=== PATIENT | male | born 1945 | race Caucasian/White ===

== ENCOUNTER 2017-04-21 10:40 | Emergency (ER) | payer MEDICARE, OTHER ==
[2017-04-21 11:05] VITALS: BP 105/66
--- NOTE | 2017-04-21 11:23 | EDM.PDOC ---
ED HPI GENERAL MEDICAL PROBLEM - General Chief Complaint: Bite:Animal, Insect Stated Complaint: TICK Time Seen by Provider: 04/21/17 11:15 Source of Information: Reports: Patient, Family, RN Notes Reviewed History Limitations: Reports: No Limitations - History of Present Illness INITIAL COMMENTS - FREE TEXT/NARRATIVE: Was mowing grass yesterday as found it would take to his chest wall this morning and tried to remove the tick unfortunately portion of the tic remains no symptoms at this time - Related Data Allergies Allergy/AdvReac Type Severity Reaction Status Date / Time No Known Allergies Allergy Verified 04/21/17 11:04 Home Meds: Home Meds Aspirin 04/21/17 [History] Levothyroxine Sodium [Levo-T] 04/21/17 [History] Omeprazole 04/21/17 [History] amLODIPine [Norvasc] 04/21/17 [History] atorvaSTATin [Lipitor] 04/21/17 [History] Past Medical History Cardiovascular History: Reports: High Cholesterol Social & Family History - Tobacco Use Smoking Status *Q: Never Smoker ED ROS GENERAL - Review of Systems Review Of Systems: See Below Constitutional: Denies: Fever Skin: Reports: Wound ED EXAM, ANIMAL BITE - Physical Exam Exam: See Below Text/Narrative:: Examination of the chest wall there is a portion of a tick embedded anterior chest wall midaxillary line right side this is removed with a #11 blade and a splinter forceps Course - Vital Signs Last Recorded V/S: Last Vital Signs Temp 95.4 F 04/21/17 11:10 Pulse 69 04/21/17 11:10 Resp 14 04/21/17 11:10 BP 105/66 04/21/17 11:10 Pulse Ox 95 04/21/17 11:10 Departure - Departure Time of Disposition: 11:22 Disposition: Home, Self-Care 01 Condition: Good Clinical Impression: Tick bite Qualifiers: Encounter type: initial encounter Qualified Code(s): W57.XXXA - Bitten or stung by nonvenomous insect and other nonvenomous arthropods, initial encounter - Discharge Information Forms: ED Department Discharge Additional Instructions: Please followup with your primary care provider in 3-5 days if not better, please call return to the emergency department with worsening of symptoms. - Assessment/Plan Plan: Assessment Acuity = acute Site and laterality = tick bite chest wall Etiology = probable wood tick Manifestations = none Location of injury = Home Lab values = none Plan Follow-up with primary care as needed Patient was in agreement with the plan all questions were answered, they were instructed to return to the emergency department or call for worsening symptoms. This note was dictated using [employer] voice recognition software please call with any questions.
== END 2017-04-21 11:39 | disposition home or self-care (01) ==
LOC: JP.ED 10:40
DX: S20.361A Insect bite (nonvenomous) of right front wall of thorax, initial encounter (principal); E78.00 Pure hypercholesterolemia, unspecified; Z79.82 Long term (current) use of aspirin; W57.XXXA Bitten or stung by nonvenomous insect and other nonvenomous arthropods, initial encounter
CPT/HCPCS: 10120; 99282-25; 99285